=== PATIENT | male | born 1965 | race Caucasian/White ===

== ENCOUNTER 2020-11-02 05:55 | Emergency (ER) | payer MEDICAID, OTHER ==
[2020-11-02] MEDS ORDERED: Ketorolac Tromethamine 30 MG/ML VIAL ONE (06:20)
[2020-11-02 07:35] LABS: #Eosinphils 0.2 thou/uL (0.0-0.7); #Lymphocytes 1.4 thou/uL (1.20-3.40); #Monocytes 0.9 thou/uL (0.11-0.59); #Neutrophils 7.1 thou/uL (1.40-6.50); %Basophils 0.1 % (0.0-1.0); %Eosinophils 1.7 % (0.0-10.0); %Lymphocytes 14.4 % (21.0-51.0); %Monocytes 9.1 % (0.0-10.0); %Neutrophils 74.7 % (42.0-75.0); Hemoglobin 12.4 g/dL (14.0-18.0); Mean Corpuscular HGB CONC 32.6 g/dL (32.0-36.0); Mean Corpuscular Hemoglobin 31.5 pg (27.0-31.0); Mean Corpuscular Volume 96.6 fL (78.0-98.0); Mean Platelet Volume 6.7 fL (7.4-10.4); Platelet Count 305 thou/uL (130-400); RBC Distribution Width 12.2 % (11.5-14.5); Red Blood Cell (RBC) Count 3.92 mill/uL (4.70-6.10); White Blood Cell (WBC) Count 9.5 thou/uL (4.8-10.8)
[2020-11-02 07:58] LABS: ALT (SGPT) 7 U/L (8-55); AST (SGOT) 10 U/L (5-34); Albumin 3.4 g/dL (3.5-5.0); Alkaline Phosphatase 115 U/L (40-110); Anion Gap 16 mmol/L (10-20); BUN (Urea Nitrogen) 25 mg/dL (8.4-25.7); Bilirubin, Total 0.4 mg/dL (0.2-1.2); Calc. Creatinine Clearance 0 mL/min (70-130); Calcium 11.9 mg/dL (7.8-10.44); Carbon Dioxide 29 mmol/L (22-29); Chloride 99 mmol/L (98-107); Glucose 166 mg/dL (70-105); Potassium 3.6 mmol/L (3.5-5.1); Protein, Total 7.4 g/dL (6.0-8.3); Sodium 140 mmol/L (136-145)
--- NOTE | 2020-11-02 09:48 | CT ---
CT OF NECK PERFORMED WITH INTRAVENOUS CONTRAST ENHANCEMENT: HISTORY: Patient with a history of neck having multiple draining wounds to the neck concerning for abscesses. COMPARISON: An 06/20/2020 CT examination. FINDINGS: There has been interval increase in the patient's mass. A soft tissue mass was seen mainly in the re gion of the vallecula aryepiglottic folds and epiglottis region. This is significantly increased in size with a necrotic mass with air density extending basically from the level of the base of the tong ue to the vocal cord level. Proximal average dimension is approximately 4.7 x 7 cm. The airway is a lmost obliterated by this. A tracheostomy tube is in place. Lymphadenopathy has also increased in t he left neck region. Necrotic nodes are seen bilaterally. Severe emphysematous lung changes are noted. IMPRESSION: Large necrotic neck mass which extends basically from the level of the base of the tongue to the voca l cord level. This is a combination of necrotic mass. There is air and fluid within it which is com patible with associated infection which probably represents multiple abscesses within a large necroti c tumor mass.. Extensive lymphadenopathy has also worsened as compared to the previous exam. Findings discussed with Dr. Leonardo. CODE CR POS: LAURA
[2020-11-02] MEDS ORDERED: Iopamidol-370 76% 500 ML 1 ML ONE (12:07)
== END 2020-11-02 10:50 | disposition home or self-care (01) ==
LOC: ERS 05:55
DX: R22.1 Localized swelling, mass and lump, neck (principal); J44.9 Chronic obstructive pulmonary disease, unspecified; F17.200 Nicotine dependence, unspecified, uncomplicated; Z79.899 Other long term (current) drug therapy; Z93.0 Tracheostomy status; Z85.21 Personal history of malignant neoplasm of larynx
CPT/HCPCS: 36415; 70491; 87040; 96374; J1885; Q9967